=== PATIENT | male | born 1965 | race Caucasian/White ===

== ENCOUNTER 2016-04-08 16:13 | Emergency (ER) | payer MEDICAID ==
[2016-04-08 16:33] VITALS: BP 154/96
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
[2016-04-08 17:07] LABS: Hematocrit 41.4 % (42.0-52.0); Hemoglobin 13.9 gm/dL (13.5-18.0); Mean Cell Volume 89.2 fl (78-100); Mean Corpuscular Hgb Conc 33.6 g/dl (32-36); Mean Platelet Volume 8.9 fl (6.0-9.5); Neutrophil # 7.1 K/mm3 (1.3-6.0); Neutrophil % 66.8 % (42-75.0); Platelet Count 249 K/mm3 (150-450); Red Blood Count 4.64 M/mm3 (4.7-6.0); Red Cell Distribution Width 13.1 % (11.5-14.0); White Blood Count 10.6 K/mm3 (4.0-10.5)
[2016-04-08] MEDS ORDERED: LORazepam 2 MG/ML DISP.SYRIN IM ONE (17:39)
[2016-04-08] MEDS ORDERED: ZIPRASIDONE MESYLATE 20 MG VIAL IM ONE (18:09)
[2016-04-08 18:11] LABS: ALT 22 U/L (19-67); AST 16 U/L (0-48); Albumin * 3.5 gm/dl (3.4-5.0); Alkaline Phosphatase * 77 U/L (50-170); Anion Gap 14.9 mmol/L (6.8-13.8); BUN/Creatinine Ratio 6.4 (9.0-21.6); Bilirubin, Total 0.3 mg/dL (0.0-1.1); Blood Urea Nitrogen 6 mg/dL (6-23); Ca. Corrected For Albumin 8.4 mg/dL (8.4-10.2); Calcium * 8.3 mg/dL (7.9-10.9); Carbon Dioxide 25.8 mmol/L (24-32.6); Chloride 105 mmol/L (97-106); Glucose * 87 mg/dL (70-110); Potassium 3.7 mmol/L (3.4-4.6); Sodium 142 mmol/L (132-142); TSH * 0.758 uIU/mL (0.358-3.74); Total Protein 7.2 gm/dL (6.2-8.2)
[2016-04-08] MEDS ORDERED: ZIPRASIDONE MESYLATE 20 MG VIAL IM SCH (18:30)
[2016-04-08 19:33] LABS: Urine Bilirubin Negative (NEGATIVE); Urine Blood Negative /ul (NEGATIVE); Urine Ketone Negative (NEGATIVE); Urine Nitrite Negative (NEGATIVE); Urine Protein Negative (NEGATIVE); Urine Specific Gravity <=1.005 SP.GR. (1.005-1.030); Urine Urobilinogen Normal (NORMAL)
[2016-04-08 19:46] LABS: Salicylate 3.2 mg/dL (2.8-20.0)
[2016-04-08 19:46] LABS: Cocaine Ur Negative (NEGATIVE); Urine Appearance Clear; Urine Bacteria None Seen; Urine Barbiturate Negative (NEGATIVE); Urine Color Colorless; Urine Opiates Negative (NEGATIVE); Urine PCP Negative (NEGATIVE); Urine RBC None Seen /hpf (0-5); Urine THC Negative (NEGATIVE); Urine WBC None Seen /hpf (0-5)
[2016-04-08 19:48] LABS: Urine Benzodiazepines Positive (NEGATIVE)
== END 2016-04-09 05:35 ==
LOC: ER 16:13
DX: R45.851 Suicidal ideations (principal); Y90.6 Blood alcohol level of 120-199 mg/100 ml; F10.120 Alcohol abuse with intoxication, uncomplicated; F17.210 Nicotine dependence, cigarettes, uncomplicated
CPT/HCPCS: 36415; 80053; 81001; 84443; 85025; 96372; 99283; G0479; G0480; G0481

== ENCOUNTER 2016-10-19 12:52 | Emergency (ER) | payer MEDICAID ==
[2016-10-19 13:07] VITALS: BP 148/99
[2016-10-19] MEDS ORDERED: KETOROLAC TROMETHAMINE 60 MG/2 ML VIAL IM ONE ×2 (13:21→13:25)
[2016-10-19] MEDS ORDERED: hydrOXYzine PAMOATE 25 MG CAPSULE PO ONE (13:22)
[2016-10-19] MEDS ORDERED: hydrOXYzine PAMOATE 25 MG CAPSULE ONE (13:25)
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
== END 2016-10-19 13:55 | disposition home or self-care (01) ==
LOC: ER 12:52
DX: B88.0 Other acariasis (principal); S20.212A Contusion of left front wall of thorax, initial encounter; F17.200 Nicotine dependence, unspecified, uncomplicated